=== PATIENT | female | born 1985 | race Caucasian/White ===

== ENCOUNTER 2021-09-09 13:18 | Emergency (ER) | payer OTHER ==
[2021-09-09 15:16] LABS: Absolute Lymphocytes (CBC) 3.5 K/uL (0.7-4.9); Hematocrit 40.7 % (36.0-45.0); MCV 91.9 fL (80-100); MPV 9.6 fL (7.6-11.3); RBC Red Blood Cell Count 4.43 M/uL (3.86-4.86)
[2021-09-09 15:30] LABS: Albumin 3.7 g/dL (3.4-5.0); Bilirubin Total 0.3 mg/dL (0.2-1.0); Potassium 3.7 mmol/L (3.5-5.1); Protein, Total 7.1 g/dL (6.4-8.2)
--- NOTE | 2021-09-09 16:42 | RAD REPORT ---
EXAM DESCRIPTION: CT - Soft Tissue Neck W/Contr - 09/09/2021 4:17 pm CLINICAL HISTORY: left sided neck swelling COMPARISON: No comparisons TECHNIQUE: During dynamic enhancement using 100 milliliters nonionic IV contrast, axial 5 millimeter thick images of the neck were obtained. All CT scans are performed using dose optimization technique as appropriate and may include automated exposure control or mA/KV adjustment according to patient size. FINDINGS: Intracranial portion the examination is unremarkable. No globe or orbital content abnormal ity. Mastoid air cells and partially visualized paranasal sinuses are clear. No pharyngeal mucosal ma ss identified. Epiglottis and vocal cords are unremarkable. No tonsillar or tongue base abnormality i dentified. Left submandibular gland is enlarged and hyperemic. The Augusta duct is enlarged and dilated to the t ermination point where there is a 5.5 millimeter sialolith. Bilateral parotid and right submandibular glands are unremarkable. No thyroid gland abnormality. IMPRESSION: Approximately 5 millimetersialolith within the left-side Augusta duct. The stone is at t he distal most aspect of the duct anterior floor the mouth. The obstructed Augusta duct is dilated and the left submandibular gland is enlarged and hyperemic.
[2021-09-09 16:49] LABS: Urine Blood Trace-intact (Negative); Urine Glucose Negative (Negative); Urine Protein Negative (Negative); Urine Specific Gravity 1.015 (1.005-1.030); Urine pH 5.5 (5.0-7.0)
[2021-09-09] MEDS ORDERED: MORPHINE 4 MG/ML SYR ONE (17:03)
[2021-09-09] MEDS ORDERED: ONDANSETRON 4 MG/2 ML VIAL ONE (17:03)
[2021-09-09] MEDS ORDERED: CLINDAMYCIN 900MG/D5W 900 MG/50 ML IVPB IV ONE (18:33)
[2021-09-09] MEDS ORDERED: KETOROLAC 30 MG/ML INJ ONE (19:36)
--- NOTE | 2021-09-09 19:38 | ER ---
Nurse's Notes [facility] Name: Zohra Savage Age: 35 yrs Sex: Female : 1985 Arrival Date: 09/09/2021 Time: 13:23 Bed 23 [facility] MD: Diagnosis: Sialolithiasis Presentation: 09/09 13:43 Chief complaint: Patient states: she is having a swollen knot on her left neck that ap3 started 09/06/21. patient reports having been to urgent care recently where she was given antibiotics and a steroid. However, patient reports the knot is not decreasing in size, so the patient has come to the ED for further evaluation. Coronavirus screen: At this time, the client does not indicate any symptoms associated with coronavirus-19. Ebola Screen: No symptoms or risks identified at this time. Initial Sepsis Screen: Does the patient meet any 2 criteria? No. Patient's initial sepsis screen is negative. Does the patient have a suspected source of infection? No. Patient's initial sepsis screen is negative. Risk Assessment: Do you want to hurt yourself or someone else? Patient reports no desire to harm self or others. Onset of symptoms was September 06, 2021. 13:43 Method Of Arrival: Ambulatory ap3 13:47 Acuity: ANNE MARIE 3 ap3 Triage Assessment: 13:47 General: Appears uncomfortable, Behavior is cooperative. Pain: Complains of pain in ap3 left side of neck and throat. EENT: Throat on left swollen. Neuro: Level of Consciousness is awake, alert, obeys commands, Oriented to person, place, time, situation, Appropriate for age. Cardiovascular: Patient's skin is warm and dry. Respiratory: Airway is patent Respiratory effort is even, unlabored. 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 - Social history:: Smoking status: Patient reports the use of cigarette tobacco products, smokes one-half pack cigarettes per day. Screenin:48 Abuse screen: Denies threats or abuse. Nutritional screening: No deficits noted. ap3 Tuberculosis screening: No symptoms or risk factors identified. 19:48 Fall Risk None identified. jb4 Assessment: 16:40 Reassessment: Patient appears in no apparent distress at this time. Patient and/or jb4 family updated on plan of care and expected duration. Pain level reassessed. Patient is alert, oriented x 3, equal unlabored respirations, skin warm/dry/pink. 17:45 Reassessment: Patient appears in no apparent distress at this time. Patient and/or jb4 family updated on plan of care and expected duration. Pain level reassessed. Patient is alert, oriented x 3, equal unlabored respirations, skin warm/dry/pink. 18:30 Reassessment: Patient appears in no apparent distress at this time. Patient and/or jb4 family updated on plan of care and expected duration. Pain level reassessed. Patient is alert, oriented x 3, equal unlabored respirations, skin warm/dry/pink. 19:24 Reassessment: Patient appears in no apparent distress at this time. Patient and/or jb4 family updated on plan of care and expected duration. Pain level reassessed. Patient is alert, oriented x 3, equal unlabored respirations, skin warm/dry/pink. Vital Signs: 13:43 Pulse 91; Resp 19; Temp 98.1; Pulse Ox 99% ; Weight 62.6 kg; Height 5 ft. 6 in. (167.64 ap3 cm); Pain 7/10; 13:47 BP 141 / 99; ap3 16:45 BP 146 / 94; Pulse 79; Resp 16; Pulse Ox 100% on R/A; jb4 18:15 BP 139 / 91; Pulse 75; Resp 16; Pulse Ox 100% on R/A; jb4 19:15 BP 129 / 95; Pulse 76; Resp 16; Pulse Ox 100% on R/A; jb4 13:43 Body Mass Index 22.27 (62.60 kg, 167.64 cm) ap3 ED Course: 13:23 Patient arrived in ED. rg4 13:45 Eliezer Darby PA is PHCP. jmm 13:45 Collin Cruz MD is Attending Physician. jmm 13:47 Triage completed. ap3 13:48 Arm band placed on right wrist. ap3 15:09 Inserted saline lock: 20 gauge in left antecubital area, using aseptic technique. Blood zm collected. 15:09 Strep Sent. zm 15:09 [place] Screen Profile Sent. zm 15:09 Blood Culture Adult (2) Sent. zm 15:09 CMP Sent. zm 15:09 CBC with Diff Sent. zm 16:19 Soft Tissue Neck W/Contr CT In Process Unspecified. EDMS 16:36 Jesus Shah, RN is Primary Nurse. jb4 19:37 Gia Hernández MD is Referral Physician. [facility] 19:48 No provider procedures requiring assistance completed. IV discontinued, intact, jb4 bleeding controlled, No redness/swelling at site. Pressure dressing applied. Administered Medications: 16:55 Drug: Zofran (Ondansetron) 4 mg Route: IVP; Site: left antecubital; jb4 19:25 Follow up: Response: No adverse reaction; Marked relief of symptoms jb4 16:57 Drug: morphine 4 mg Route: IVP; Infused Over: 4 mins; Site: left antecubital; jb4 19:26 Follow up: Response: No adverse reaction; Marked relief of symptoms jb4 18:29 Drug: Clindamycin 900 mg Route: IVPB; Infused Over: 30 mins; Site: left antecubital; jb4 18:59 Follow up: Response: No adverse reaction; IV Status: Completed infusion jb4 19:31 Drug: Ketorolac 30 mg Route: IVP; Site: left antecubital; jb4 19:47 Follow up: Response: (VIS) Vaccine information sheet provided today. Questions and/or jb4 concerns addressed. VIS edition date: Oct 05, 2020.; Adverse reaction, Physician notified Medication: 19:48 VIS not applicable for this client. jb4 Outcome: 19:37 Discharge ordered by . [facility] 19:48 Discharged to home ambulatory. jb4 19:48 Condition: stable 19:48 Discharge instructions given to patient, Instructed on discharge instructions, follow up and referral plans. medication usage, Demonstrated understanding of instructions, follow-up care, medications, Prescriptions given X 2. 19:49 Patient left the ED. jb4 Signatures: Dispatcher [employer] EDMS Eliezer Darby PA PA jmm Garcia, Rubi rg4 Jesus Shah, RN RN jb4 Belle Skelton RN RN ap3 Madeline Ford
--- NOTE | 2021-09-09 19:38 | EDPHYS ---
Physician Documentation [facility] Name: Zohra Savage Age: 35 yrs Sex: Female : 1985 Arrival Date: 09/09/2021 Time: 13:23 Bed 23 Private MD: ED Physician Collin Cruz HPI: 09/09 13:45 This 35 yrs old Female presents to ER via Ambulatory with complaints of Sore Throat, jmm Neck Swelling. 13:45 The patient presents with sore throat. Onset: The symptoms/episode began/occurred jmm gradually, 1 week(s) ago. This is a 35 year old female with a history of coronary artery spasms that presents to the ED with complaints of sore throat, left sided neck swelling. Symptoms began at approx 1 week ago. Patient was seen at yesterday and advised to go to the ED if symptoms worsen. . 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 - Social history:: Smoking status: Patient reports the use of cigarette tobacco products, smokes one-half pack cigarettes per day. ROS: 13:45 Constitutional: Negative for fever, chills, and weight loss, Cardiovascular: Negative jmm for chest pain, palpitations, and edema, Respiratory: Negative for shortness of breath, cough, wheezing, and pleuritic chest pain. 13:45 Constitutional: Positive for 13:45 ENT: Positive for sore throat. 13:45 All other systems are negative. Exam: 13:45 Constitutional: This is a well developed, well nourished patient who is awake, alert, jmm and in no acute distress. Head/Face: atraumatic. Eyes: EOMI, no conjunctival erythema appreciated ENT: Moist Mucus Membranes Neck: Trachea midline, Supple Chest/axilla: Normal chest wall appearance and motion. Cardiovascular: Regular rate and rhythm. No edema appreciated Respiratory: Normal respirations, no respiratory distress appreciated Abdomen/GI: Non distended Back: Normal ROM Skin: General appearance color normal 13:45 Musculoskeletal/extremity: ROM: no acute changes, Circulation is intact in all extremities. 13:45 Skin: Appearance: Color: normal in color. 13:45 Neuro: Orientation: is normal, Mentation: is normal, Memory: is normal. 13:45 Psych: Behavior/mood is pleasant, cooperative. Vital Signs: 13:43 Pulse 91; Resp 19; Temp 98.1; Pulse Ox 99% ; Weight 62.6 kg; Height 5 ft. 6 in. (167.64 ap3 cm); Pain 7/10; 13:47 BP 141 / 99; ap3 16:45 BP 146 / 94; Pulse 79; Resp 16; Pulse Ox 100% on R/A; jb4 18:15 BP 139 / 91; Pulse 75; Resp 16; Pulse Ox 100% on R/A; jb4 19:15 BP 129 / 95; Pulse 76; Resp 16; Pulse Ox 100% on R/A; jb4 13:43 Body Mass Index 22.27 (62.60 kg, 167.64 cm) ap3 MDM: 13:51 Patient medically screened. [facility] 19:26 Data reviewed: vital signs, nurses notes. Counseling: I had a detailed discussion with [facility] the patient and/or guardian regarding: the historical points, exam findings, and any diagnostic results supporting the discharge/admit diagnosis, lab results, radiology results, the need for outpatient follow up, to return to the emergency department if symptoms worsen or persist or if there are any questions or concerns that arise at home. ED course: I discussed the patient with Dr. Armstrong whom will follow up with the patient in clinic tomorrow. . 19:27 Counseling: I had a detailed discussion with the patient and/or guardian regarding: the [facility] historical points, exam findings, and any diagnostic results supporting the discharge/admit diagnosis. 09/09 13:45 Order name: CBC with Diff; Complete Time: 15:22 [facility] 09/09 13:45 Order name: CMP; Complete Time: 15:40 [facility] 09/09 13:45 Order name: Blood Culture Adult (2) [facility] 09/09 13:49 Order name: [place] Screen Profile; Complete Time: 15:59 [facility] 09/09 13:49 Order name: Strep; Complete Time: 15:40 [facility] 09/09 13:45 Order name: Saline Lock; Complete Time: 15:09 [facility] 09/09 13:48 Order name: Soft Tissue Neck W/Contr CT; Complete Time: 16:43 [facility] 09/09 15:40 Order name: Throat Culture [facility] 09/09 16:49 Order name: Urine Dipstick-Ancillary; Complete Time: 16:50 [facility] 09/09 15:22 Order name: Urine Dipstick-Ancillary (obtain specimen); Complete Time: 16:50 dh3 Administered Medications: 16:55 Drug: Zofran (Ondansetron) 4 mg Route: IVP; Site: left antecubital; jb4 19:25 Follow up: Response: No adverse reaction; Marked relief of symptoms jb4 16:57 Drug: morphine 4 mg Route: IVP; Infused Over: 4 mins; Site: left antecubital; jb4 19:26 Follow up: Response: No adverse reaction; Marked relief of symptoms jb4 18:29 Drug: Clindamycin 900 mg Route: IVPB; Infused Over: 30 mins; Site: left antecubital; jb4 18:59 Follow up: Response: No adverse reaction; IV Status: Completed infusion jb4 19:31 Drug: Ketorolac 30 mg Route: IVP; Site: left antecubital; jb4 19:47 Follow up: Response: (VIS) Vaccine information sheet provided today. Questions and/or 4 concerns addressed. VIS edition date: Oct 05, 2020.; Adverse reaction, Physician notified Disposition: 09/10 07:32 Co-signature as Attending Physician, Collin Cruz MD. rn Disposition Summary: 09/09/21 19:37 Discharge Ordered Location: Home [facility] Condition: Stable [facility] Diagnosis - Sialolithiasis [facility] Followup: [facility] - With: Gia Hernández MD - When: Tomorrow - Reason: Recheck today's complaints, Continuance of care, Re-evaluation by your physician Discharge Instructions: - Discharge Summary Sheet [facility] - Salivary Stone [facility] Forms: - Medication Reconciliation Form [facility] - Thank You Letter [facility] - Antibiotic Education [facility] - Prescription Opioid Use [facility] Prescriptions: - Clindamycin HCl 300 mg Oral Capsule - take 1 capsule by ORAL route every 6 hours for 10 days; 40 capsule; Refills: 0, [facility] Product Selection Permitted - Ultracet 37.5-325 mg Oral Tablet - take 1 tablet by ORAL route every 6 hours - for up to 5 days; do not exceed 8 jmm tablets per day.; 12 tablet; Refills: 0, Product Selection Permitted Signatures: Dispatcher [employer] Eliezer Giron PA PA jmm Nieto, Roman, MD MD rn Bryson, James, RN RN jb4 Libia Hernández 3 Belle Skelton RN RN ap3
[2021-09-09 20:35] VITALS: TEMP 98.1
[2021-09-09 20:38] VITALS: O2SAT 100
[2021-09-09 20:44] VITALS: BP 129/95
== END 2021-09-09 19:49 | disposition home or self-care (01) ==
LOC: ER 13:18
DX: K11.5 Sialolithiasis (principal); F17.210 Nicotine dependence, cigarettes, uncomplicated; Z88.5 Allergy status to narcotic agent
CPT/HCPCS: 96365; 87040 ×2; 87070; 85025; 36415; 86308; 87081; 81003; 80053; 70491; 96375; 99284; Q9967; J2405